=== PATIENT | female | born 1980 | race Caucasian/White ===

== ENCOUNTER 2018-04-13 08:22 | Outpatient (CLI) | payer BC ==
--- NOTE | 2018-04-13 11:11 | ULT ---
ULTRASOUND ABDOMEN: Date: 04/13/18 HISTORY: Abdominal pain. FINDINGS: The liver demonstrates increased echogenicity consistent with fatty infiltrate. No focal mass or intr ahepatic ductal dilatation is seen. The spleen is normal, measuring 10.0 cm in length. No gallstones, gallbladder wall thickening, or pericholecystic fluid is seen. The common duct measures 5.0 mm in di ameter. The pancreas, abdominal aorta, and IVC appear normal. No free fluid is seen. No hydronephrosis is noted on either side. There is a 1.9 cm cyst in the right kidney and a 1.3 cm cyst in the left kidney. The cyst in the right kidney has a thin internal septat ion. IMPRESSION: 1. Fatty liver. 2. No evidence of cholelithiasis. 3. Bilateral renal cysts. POS: [facility]
--- NOTE | 2018-04-13 12:10 | RAD ---
UPPER GI AIR CONTRAST: HISTORY: Chest and abdomen pain. Esophagitis. Reflux. FINDINGS: Physical Therapist Aide KUB shows a large amount of stool throughout the colon. Small bowel gas pattern is nonspecific . Small sliding hiatal hernia with minimal gastroesophageal reflux. The stomach has a normal appearanc e. Duodenal bulb s unremarkable. Two small diverticula project medially from the 2nd portion of the duodenum. IMPRESSION: 1. Constipation. 2. Very small sliding hiatal hernia with minimal gastroesophageal reflux. POS: [facility]
== END 2018-04-13 08:23 | disposition home or self-care (01) ==
LOC: ULT 08:22
PROVIDERS: ATTEND Internal Medicine Gastroenterology
DX: K21.9 Gastro-esophageal reflux disease without esophagitis (principal); R10.12 Left upper quadrant pain; K59.00 Constipation, unspecified; R53.82 Chronic fatigue, unspecified; M54.9 Dorsalgia, unspecified; K76.0 Fatty (change of) liver, not elsewhere classified; N28.1 Cyst of kidney, acquired; K44.9 Diaphragmatic hernia without obstruction or gangrene
CPT/HCPCS: 74247; 76700

== ENCOUNTER 2019-04-18 17:00 | Outpatient (CLI) | payer BC | END 2019-04-18 17:01 | disposition home or self-care (01) | LOC: SLEEPLAB 17:00 | PROVIDERS: ATTEND Family Medicine | DX: G47.10 Hypersomnia, unspecified (principal); R53.83 Other fatigue; G31.84 Mild cognitive impairment of uncertain or unknown etiology; E66.9 Obesity, unspecified; F32.9 Major depressive disorder, single episode, unspecified | CPT/HCPCS: 95806 ==

== ENCOUNTER 2020-06-09 15:37 | Outpatient (CLI) | payer BC | END 2020-06-09 15:38 | disposition home or self-care (01) | LOC: CTENTCT 15:37 | PROVIDERS: ATTEND Otolaryngology Plastic Surgery within the Head & Neck | DX: J32.8 Other chronic sinusitis (principal) | CPT/HCPCS: 70486 ==

== ENCOUNTER 2020-08-07 08:06 | Outpatient (CLI) | payer BC ==
[2020-08-07 18:37] LABS: BHCG - Serum Negative (NEGATIVE); Pregs Control Background? CLEAR/WHITE (CLR/WHITE); Pregs Control Bar Appear? YES (CONTROL BAR)
[2020-08-08 04:19] LABS: SARS-CoV-2 PCR by NAA Not Detected (NotDetected)
== END 2020-08-07 08:07 | disposition home or self-care (01) ==
LOC: LABBT 08:06
PROVIDERS: ATTEND Otolaryngology Plastic Surgery within the Head & Neck
DX: Z01.812 Encounter for preprocedural laboratory examination (principal); Z20.822 Contact with and (suspected) exposure to COVID-19; J32.8 Other chronic sinusitis; J30.9 Allergic rhinitis, unspecified; J34.3 Hypertrophy of nasal turbinates; J34.2 Deviated nasal septum
CPT/HCPCS: 84703; 85014; 87635; U0003; U0005

== ENCOUNTER 2020-08-12 07:25 | Day surgery (SDC) | payer BC ==
[2020-08-11 11:05] VITALS: BMI 35.8
[2020-08-12] MEDS ORDERED: AFRIN NASAL MIST 15 ML BOT ONE ×2 (07:30→08:32)
[2020-08-12] MEDS ORDERED: Labetalol HCl 100 MG/20 ML VIAL ONE ×2 (08:09→10:23)
[2020-08-12] MEDS ORDERED: XYLOCAINE 2%-EPI 1:100,000 20 ML VIAL ONE (08:32)
[2020-08-12] MEDS ORDERED: Bacitracin Zinc Ointment 30 gm TUBE ONE (08:32)
[2020-08-12] MEDS ORDERED: Fentanyl 100 MCG/2 ML VIAL ONE (09:05)
[2020-08-12] MEDS ORDERED: Morphine 2 MG/ML VIAL ONE (09:05)
[2020-08-12] MEDS ORDERED: Dexamethasone 20 MG/5 ML VIAL ONE (09:17)
[2020-08-12] MEDS ORDERED: Ondansetron PF 4 MG/2 ML Vial ONE ×2 (09:17→12:06)
[2020-08-12] MEDS ORDERED: PROPOFOL 200 MG/20 ML VIAL ONE (09:17)
[2020-08-12] MEDS ORDERED: Lidocaine 1% PF 5 ML VIAL ONE (09:17)
[2020-08-12] MEDS ORDERED: hydrALAZINE 20 MG/ML VIAL ONE (10:53)
[2020-08-12] MEDS ORDERED: Hydrocodone-Acetamin 15 ML UDCUP ONE (11:53)
--- NOTE | 2020-08-13 12:04 | OP ---
DATE OF PROCEDURE: 08/12/2020 PREOPERATIVE DIAGNOSES: 1. Chronic rhinosinusitis. 2. Nasal septal deviation. 3. Bilateral inferior turbinate hypertrophy. 4. Nasal obstruction. POSTOPERATIVE DIAGNOSES: 1. Chronic rhinosinusitis. 2. Nasal septal deviation. 3. Bilateral inferior turbinate hypertrophy. 4. Nasal obstruction. PROCEDURES PERFORMED: 1. Bilateral endoscopic sinus surgery, total ethmoidectomies. 2. Bilateral endoscopic sinus surgery, maxillary antrostomies. 3. Bilateral endoscopic sinus surgery, frontal sinusotomies. 4. Bilateral endoscopic sinus surgery, sphenoidotomies. 5. Nasal septoplasty. 6. Bilateral inferior turbinate submucosal resection. ESTIMATED BLOOD LOSS: Less than 50 mL. COMPLICATIONS: None. ANESTHESIA: GETA. DESCRIPTION OF PROCEDURE: NASOSEPTOPLASTY AND BILATERAL INFERIOR TURBINATE SUBMUCOSAL RESECTION: Patient was taken to the operating room and placed supine on the table. General endotracheal anesthesia was obtained by the anesthesia staff. Then 1% lidocaine with 1:100,000 epinephrine was injected into the nasal septum as well as the inferior turbinates. The patient was prepped and draped in standard surgical fashion. The Afrin pledgets were then removed. A Narayan incision was made on the left nasal septum. Submucoperichondrial dissection was performed bilaterally of the deviated portions of the septum, which included the maxillary crest and the crest deviation, as well as the mid portion of the septum. Cartilage and bony deviation were removed, leaving a generous caudal and dorsal strut. Any straight pieces of cartilage were then placed within the cartilage press, pressed, straightened, and then placed between the mucoperichondrial flaps, which were then closed using a 4-0 gut stitch. The inferior turbinates were then punctured with the submucosal Coblation machine, and 3 separate coblations were delivered to the anterior inferior portion of the inferior turbinates. Following this, the nasal cavity was irrigated. All debris was removed. An orogastric tube was placed. Gastric contents and Laird splints were then placed in the nasal cavity and sutured with a 3-0 silk stitch. Following this, the 0-degree endoscope was advanced into the middle meatus and the middle turbinate was identified. The Crane elevator was used to gently medialized the middle turbinates bilaterally. The uncinate process was visualized and was then anteriorly fractured using a ball-ended probe bilaterally. The uncinate process was then removed using the 0-degree microdebrider and up-biting Blakesley forceps bilaterally. Following this, the natural maxillary sinus ostia was identified using the ball-ended probe and the maxillary sinus ostia was then widened using a 40-degree microdebrider and straight Blakesley forceps bilaterally. Following this, ethmoidal bulla was identified and was punctured on its medial and inferior aspect. The ethmoidal bulla was then removed using the 0-degree microdebrider and up-biting Blakesley forceps bilaterally. Following this, the ground lamella was identified and was punctured into the posterior ethmoidal cells using 0-degree microdebrider bilaterally. Working from posterior to anterior, the ethmoidal cells were opened using the curved Carvajal plate and view. The 0-degree microdebrider, 40-degree microdebrider, and up-biting Blakesley forceps were used to remove an open the ethmoidal cells. Following this, the anterior wall of the sphenoid sinus was identified through the previous ethmoidectomies and the 0-degree microdebrider was used to puncture the anterior face of the sphenoid wall with the 0-degree microdebrider. The sphenoid sinusotomy was then widened in a medial and inferior direction using the 0-degree microdebrider bilaterally. Following this, 45-degree endoscope was used to visualize the frontal sinus recess and frontal sinus ostia. The 40-degree microdebrider blade and the up-biting Blakesley forceps were used to widen the frontal sinus ostia bilaterally. Following this, the nasal cavity was irrigated. NasoPore packing was placed within the middle meatus. Laird splints were placed and secured. The patient tolerated the procedure well. Job ID: [id number]
== END 2020-08-12 13:31 | disposition home or self-care (01) ==
LOC: SDC 07:25
PROVIDERS: ATTEND Otolaryngology Plastic Surgery within the Head & Neck
PROC: 099X8ZZ Drainage of Left Sphenoid Sinus, Via Natural or Artificial Opening Endoscopic (ICD-10-PCS; principal; 2020-08-12)
PROC: 099T8ZZ Drainage of Left Frontal Sinus, Via Natural or Artificial Opening Endoscopic (ICD-10-PCS; principal; 2020-08-12)
PROC: 099S8ZZ Drainage of Right Frontal Sinus, Via Natural or Artificial Opening Endoscopic (ICD-10-PCS; principal; 2020-08-12)
PROC: 09TL0ZZ Resection of Nasal Turbinate, Open Approach (ICD-10-PCS; principal; 2020-08-12)
PROC: 09SM0ZZ Reposition Nasal Septum, Open Approach (ICD-10-PCS; principal; 2020-08-12)
PROC: 099Q8ZZ Drainage of Right Maxillary Sinus, Via Natural or Artificial Opening Endoscopic (ICD-10-PCS; principal; 2020-08-12)
PROC: 099W8ZZ Drainage of Right Sphenoid Sinus, Via Natural or Artificial Opening Endoscopic (ICD-10-PCS; principal; 2020-08-12)
PROC: 09TU8ZZ Resection of Right Ethmoid Sinus, Via Natural or Artificial Opening Endoscopic (ICD-10-PCS; principal; 2020-08-12)
PROC: 09TV8ZZ Resection of Left Ethmoid Sinus, Via Natural or Artificial Opening Endoscopic (ICD-10-PCS; principal; 2020-08-12)
PROC: 099R8ZZ Drainage of Left Maxillary Sinus, Via Natural or Artificial Opening Endoscopic (ICD-10-PCS; principal; 2020-08-12)
DX: J32.9 Chronic sinusitis, unspecified (principal); J34.2 Deviated nasal septum; J34.3 Hypertrophy of nasal turbinates; J34.89 Other specified disorders of nose and nasal sinuses; J30.1 Allergic rhinitis due to pollen; G43.909 Migraine, unspecified, not intractable, without status migrainosus; Z79.899 Other long term (current) drug therapy; Z88.1 Allergy status to other antibiotic agents; Z88.8 Allergy status to other drugs, medicaments and biological substances
CPT/HCPCS: J0360; J1100; J2270; J2405; J2704; J3010

== ENCOUNTER 2023-09-07 08:16 | Outpatient (CLI) | payer OTHER | END 2023-09-07 08:17 | disposition home or self-care (01) | LOC: BICRAD 08:16 | PROVIDERS: ATTEND Internal Medicine Rheumatology | DX: M54.50 Low back pain, unspecified (principal) | CPT/HCPCS: 72100 ==

== ENCOUNTER 2025-06-11 09:38 | Outpatient (CLI) | payer OTHER | END 2025-06-11 09:39 | disposition home or self-care (01) | LOC: BICMAMMO 09:38 | PROVIDERS: ATTEND Family Medicine | DX: Z12.31 Encounter for screening mammogram for malignant neoplasm of breast (principal); R92.1 Mammographic calcification found on diagnostic imaging of breast; R92.333 Mammographic heterogeneous density, bilateral breasts | CPT/HCPCS: 77063; 77067 ==